=== PATIENT | female | born 1940 | race Caucasian/White ===

== ENCOUNTER 2018-01-16 08:41 | Outpatient (CLI) | payer MEDICARE ==
[2018-01-16 10:44] LABS: Hemoglobin 13.3 g/dL (12.0-16.0); Mean Corpuscular HGB CONC 33.7 g/dL (32.0-36.0); Mean Corpuscular Hemoglobin 32.6 pg (27.0-31.0); Mean Corpuscular Volume 96.9 fl (81.0-99.0); Mean Platelet Volume 7.6 fL (7.4-10.4); Platelet Count 270 thou/uL (130-400); RBC Distribution Width 12.6 % (11.5-14.5); Red Blood Cell (RBC) Count 4.07 mill/uL (4.20-5.40); White Blood Cell (WBC) Count 7.6 thou/uL (4.8-10.8)
[2018-01-16 10:46] LABS: Bilirubin Negative (Negative); Blood, Urine Negative (Negative); Clarity CLEAR (Clear); Glucose, Urine (Dipstick) Negative (Negative); INR-International Normal Ratio 0.9; Leukocyte Negative (Negative); Nitrite Negative (Negative); Protein, Urine (Dipstick) Negative (Neg-Trace); Prothrombin Time 12.3 SEC (12.0-14.7); Specific Gravity, Urine 1.023 (1.002-1.036); Urobilinogen 0.2 mg/dL (0.2-1.0)
[2018-01-16 10:48] LABS: Bacteria/HPF None Seen HPF (None Seen); Hyaline Casts/LPF 0-3 HYALINE CAST LPF (0-3 Hyaline); RBC/HPF 0-3 HPF (0-3); Squamous Epithelial None Seen HPF (0-3)
[2018-01-16 11:07] LABS: Anion Gap 12 mmol/L (10-20); BUN (Urea Nitrogen) 20 mg/dL (9.8-20.1); Calc. Creatinine Clearance 0 mL/min (70-130); Carbon Dioxide 27 mmol/L (23-31); Chloride 106 mmol/L (98-107); Estimated GFR-MDRD 79; Glucose 103 mg/dL (83-110); Potassium 4.6 mmol/L (3.5-5.1); Sodium 140 mmol/L (136-145)
== END 2018-01-16 08:42 | disposition home or self-care (01) ==
LOC: LABBT 08:41
PROVIDERS: ATTEND Orthopaedic Surgery
DX: Z01.818 Encounter for other preprocedural examination (principal); M17.11 Unilateral primary osteoarthritis, right knee
CPT/HCPCS: 80048; 81001; 85027; 85610; 87081; 87086

== ENCOUNTER 2018-01-27 10:54 | Outpatient (CLI) | payer MEDICARE | END 2018-01-27 10:55 | disposition home or self-care (01) | LOC: LABBT 10:54 | PROVIDERS: ATTEND Orthopaedic Surgery | DX: Z01.818 Encounter for other preprocedural examination (principal); M17.11 Unilateral primary osteoarthritis, right knee | CPT/HCPCS: 86850; 86900; 86901 ==

== ENCOUNTER 2018-01-30 08:19 | Day surgery (SDC) | payer MEDICARE ==
[2018-01-16 09:04] VITALS: BMI 32.0
--- NOTE | 2018-01-26 15:45 | HP ---
DATE: 01/30/2018 HISTORY OF PRESENT ILLNESS: The patient is a 77-year-old female with a 1 year history of progressive right knee pain without injury. She has progressive pain with walking. She has had progressive sym ptoms despite rest, restriction of activities, anti-inflammatory medications including Celebrex, stem cell injections and also cortisone injection. The pain is now interfering with day to day activitie s, including walking, getting dressed and sleeping. PAST MEDICAL HISTORY: As noted above. The patient is otherwise in good health. CURRENT MEDICATIONS: Include Celebrex, multivitamins, vitamin D, Coenzyme Q10. ALLERGIES: She has no allergies. FAMILY HISTORY/SOCIAL HISTORY/REVIEW OF SYSTEMS: Otherwise, unremarkable. PHYSICAL EXAMINATION: GENERAL: Reveals a healthy female. HEENT: Unremarkable. NECK: Supple. CHEST: Clear. HEART: Regular rate and rhythm. ABDOMEN: Soft, nontender. PELVIC/RECTAL/BREAST: Exams are deferred. EXTREMITIES: Pertinent findings related to the right knee. There is puffiness but no definite effus ion. There is moderate varus deformity. There is tenderness and crepitus over the medial joint line . Range of motion is 0-120 degrees. There is crepitus with range of motion. There is no instabilit y. Pulses are 2+. There is a right antalgic gait. Neurovascular exam is intact. LABORATORY AND X-RAY FINDINGS: X-rays reveal bone on bone collapse medially with progression from pr evious x-rays and medial and lateral chondrocalcinosis. IMPRESSION: Degenerative arthritis, right knee. PLAN: Right total knee replacement. The nature of the surgery at length of recovery, and potential complications such as infection, loss of motion, incomplete relief, thromboembolic phenomena, neurova scular injury, delayed wound healing, possible revision, possible transfusion have been discussed in detail.
[2018-01-30] MEDS ORDERED: CEFAZOLIN/Water 2 GM/20 ML SYRINGE ONE (09:10)
[2018-01-30] MEDS ORDERED: Ropivacaine 0.5% HCl/PF (150 MG/30 ML VIAL) ONE (09:47)
[2018-01-30] MEDS ORDERED: Bupivacaine/Epinephrine 0.25% 30 ML VIAL ONE ×2 (09:47→11:44)
[2018-01-30] MEDS ORDERED: Morphine 2 MG/ML SYRINGE ONE (10:42)
[2018-01-30] MEDS ORDERED: Midazolam HCl 2 mg/2 ml Vial ONE (10:42)
[2018-01-30] MEDS ORDERED: Ropivacaine 0.2% HCl/PF 20 ML ONE (10:48)
[2018-01-30] MEDS ORDERED: Promethazine HCl 25 MG/ML VIAL IM PRN ×2 (10:54→13:56)
[2018-01-30] MEDS ORDERED: Zolpidem Tartrate 5 MG TAB PO PRN ×2 (10:54→14:40)
[2018-01-30] MEDS ORDERED: Ondansetron HCl/PF 4 MG/2 ML Vial IVP PRN ×3 (10:54→14:40)
[2018-01-30] MEDS ORDERED: traMADol HCl 50 MG TAB PO PRN ×2 (10:54→14:40)
[2018-01-30] MEDS ORDERED: HYDROcodone/Acetaminophen 7.5/325 mg Tablet PO PRN (10:56)
[2018-01-30] MEDS ORDERED: Morphine 2 MG/ML SYRINGE SLOW IVP PRN (10:56)
[2018-01-30] MEDS ORDERED: Lidocaine 1% w/Epinephrine 1:200K 30 ML VIAL ONE (11:44)
[2018-01-30] MEDS ORDERED: Tranexamic Acid 1,000 MG in Sodium Chloride 0.9% 100 ML IVPB SCH ×2 (13:45→14:40)
[2018-01-30] MEDS ORDERED: Fentanyl 250 MCG/5 ML VIAL ONE (13:48)
[2018-01-30] MEDS ORDERED: Promethazine HCl 25 MG/ML VIAL SLOW IVP PRN ×2 (13:56→14:40)
--- NOTE | 2018-01-30 14:07 | OP ---
DATE OF SURGERY: 01/30/2018 SURGEON: Maximo Juarez M.D. BURR PICKER: AGUILAR Mcclain. ANESTHESIA: General plus femoral site nerve blocks. PREOPERATIVE DIAGNOSIS: Degenerative arthritis, right knee. POSTOPERATIVE DIAGNOSIS: Degenerative arthritis, right knee. PROCEDURES PERFORMED: Right total knee replacement with computer-assisted navigation with cemented S tryker Triathlon components (#4 femoral component, #3 universal tibial baseplate with 9 mm CS plastic insert, and A29 all plastic patellar components). NARRATIVE REPORT: After satisfactory anesthesia was induced in supine position, Sequential compressi on device was placed on the operated leg throughout the procedure. Right leg was then prepped and dr aped in routine sterile fashion. The leg was elevated with an Esmarch bandage, and the tourniquet in flated to 300 mmHg. A gently curved medial parapatellar incision was made and carried down to subcut aneous tissues, and bleeding points controlled with Bovie cautery. Medial parapatellar arthrotomy pe rformed. Patella dislocated laterally and portions of the fat pad were excised for exposure. There was marked degenerative arthritis of the knee, especially medially, with large areas of exposed bone. Meniscal remnants and osteophytes were removed. Using the vivio pinless navigation system and e appropriate guides, the distal femoral and proximal tibial articular surfaces were excised with an oscillating saw to accept the trial components. It was felt that #4 femoral component and #3 tibial baseplate with 9 mm CS plastic insert gave appropriate size, fit, stability, and correction of the pr eoperative deformity. The patella surface was excised to accept an all plastic A29 patellar componen t. There was good range of motion, good patellar tracking. The trial components were removed. The wound copiously irrigated with the pulsatile lavage and the bony surfaces thoroughly cleaned and drie d. The permanent components were then cemented in a single stage using 1 package of cement premixed with 1 gram of tobramycin powder. Excess cement was removed. There was then good fit and stability of the components. The knee was again copiously irrigated. The medial retinaculum and quadriceps me chanism was closed with interrupted #2 Vicryl and a running #2 Quill. Subcutaneous tissues were clos ed with running 0 Quill suture and the skin closed with running subcuticular 3-0 Monoderm and SurgiSe al skin adhesive. A sterile bulky compressive dressing was applied and the tourniquet deflated after 62 minutes. The foot promptly pinked up and sequential compression device was placed on the operate d leg. She was awakened and taken to recovery room in stable condition. There were no apparent intr aoperative complications. The estimated blood loss was less than 100 mL.
[2018-01-30] MEDS ORDERED: Fentanyl 100 MCG/2 ML VIAL SLOW IVP PRN ×2 (14:40)
[2018-01-30] MEDS ORDERED: Acetaminophen 325 MG TAB PO PRN (14:40)
[2018-01-30] MEDS ORDERED: Non-Formulary Item 1 EACH (Cholecalciferol (Vitamin D3) [Vitamin D3] 10,000 UNIT) PO SCH (14:40)
[2018-01-30] MEDS ORDERED: HYDROcodone/Acetaminophen 10/325 mg Tablet PO PRN ×2 (14:40)
[2018-01-30] MEDS ORDERED: diphenhydrAMINE 25 MG CAP PO PRN (14:40)
[2018-01-30] MEDS ORDERED: Ondansetron HCl/PF 4 MG/2 ML Vial ONE (14:49)
[2018-01-30] MEDS ORDERED: Propofol 200 MG/20 ML VIAL ONE (14:49)
[2018-01-30] MEDS ORDERED: Dexamethasone 20 MG/5 ML VIAL ONE (14:49)
--- NOTE | 2018-01-30 15:20 | RAD ---
RIGHT KNEE TWO VIEWS: History: Post op total knee. Comparison: None. FINDINGS: Satisfactory appearance of right total knee arthroplasty with patellar resurfacing. Expected post-ope rative gas and edema. IMPRESSION: Satisfactory appearance right total knee arthroplasty without complication. POS: [facility]PC
[2018-01-30] MEDS: Sodium Chloride 0.9% 1,000 ML IV SCH (15:27)
[2018-01-30] MEDS: Morphine 4 MG/ML VIAL SLOW IVP PRN (15:43)
--- NOTE | 2018-01-30 17:01 | PDOC.PN ---
- Subjective Encounter Start Date: 01/30/18 Encounter Start Time: 16:59 Pt seen for management of medical comorbidities, including dyslipidemia. pain R knee 12/24, no other complaints. - Objective MAR Reviewed: Yes Vital Signs & Weight: Weight Weight 175 lb Phys Exam - Physical Examination Obese HEENT: moist MMs Neck: supple Respiratory: clear to auscultation bilateral Cardiovascular: RRR Gastrointestinal: soft s/p R knee surgery Neurological: moves all 4 limbs Psychiatric: normal affect Skin: no rash Dx/Plan (1) Dyslipidemia Code(s): E78.5 - HYPERLIPIDEMIA, UNSPECIFIED Status: Chronic (2) Hypertension Code(s): I10 - ESSENTIAL (PRIMARY) HYPERTENSION Status: Chronic (3) Arthritis Code(s): M19.90 - UNSPECIFIED OSTEOARTHRITIS, UNSPECIFIED SITE Status: Chronic - Plan plan discussed w/ family, PT/OT, out of bed/ambulate * . Continue Zetia. Pt was diagnosed with hypertension in past, later taken off of meds due to hypotension/light-headedness. Takes HCTZ PRN for leg swelling. Will add PRN IV hydralazine for blood pressure spikes. s/p R knee surgery. pain management and DVT prophylaxis per orthopedic surgery. Review of Systems - Review of Systems Cardiovascular: negative: chest pain, palpitations, orthopnea, paroxysmal nocturnal dyspnea, edema, light headedness Gastrointestinal: negative: Nausea, Vomiting, Abdominal Pain, Diarrhea, Constipation, Melena, Hematochezia - Medications/Allergies Allergies/Adverse Reactions: Allergies Allergy/AdvReac Type Severity Reaction Status Date / Time No Known Allergies Allergy Unverified 01/16/18 09:04 Medications: Current Medications Acetaminophen (Tylenol) 650 mg PO Q4H PRN PRN Reason: ROGEL/ T > 101F; Mild Pain (1-3) Hydrocodone Bitart/Acetaminophen ([place] 7.5/325) 1 tab PO Q4H PRN PRN Reason: .MILD PAIN 1-3 Hydrocodone Bitart/Acetaminophen ([place] 7.5/325) 2 tab PO Q4H PRN PRN Reason: .MOD PAIN 4-6 Aspirin (Ecotrin) 81 mg PO BID [facility] Brimonidine Tartrate (Alphagan 0.2% Ophth Soln) 1 drop EA EYE BID TITO Brinzolamide (Azopt 1% Ophth Soln) 1 drop EA EYE BID [facility]ITO Cefazolin Sodium (Ancef) 2 gm SLOW IVP 0400,1200,2000 [facility] Stop: 01/31/18 04:01 Diphenhydramine HCl (Benadryl) 25 mg PO Q6H PRN PRN Reason: Itching Ezetimibe (Zetia) 10 mg PO QAM [facility] Ferrous Gluconate (Fergon) 324 mg PO BID [facility] Bupivacaine HCl 50 ml/ Sodium (Chloride) 100 mls @ 8 mls/hr NERVE BLCK INF [facility] Sodium Chloride (Normal Saline 0.9%) 1,000 mls @ 100 mls/hr IV .Q10H [facility] Last Admin: 01/30/18 15:27 Dose: Not Given Vancomycin HCl 1 gm/ Device 200 mls @ 200 mls/hr IVPB 2200 [facility] Stop: 01/30/18 23:59 Iron/Minerals/Multivitamins (Theragran M) 1 tab PO DAILY [facility] Ketorolac Tromethamine (Toradol) 15 mg IVP Q8HR [facility] Stop: 02/04/18 22:01 Morphine Sulfate (Morphine) 2 mg SLOW IVP Q1H PRN PRN Reason: .BREAKTHROUGH PAIN Last Admin: 01/30/18 15:43 Dose: 2 mg Non-Formulary Medication (Cholecalciferol (Vitamin D3) [Vitamin D3]) 10,000 unit PO ASDIR [facility] Ondansetron HCl (Zofran) 4 mg IVP Q6H PRN PRN Reason: Nausea/Vomiting Ondansetron HCl (Zofran) 4 mg IVP Q6H PRN PRN Reason: Nausea/Vomiting Prasterone (Dhea) [ (Dhea] 5 Mg) 0 each PO DAILY [facility] Promethazine HCl (Phenergan) 12.5 mg IM Q4H PRN PRN Reason: Nausea Promethazine HCl (Phenergan) 12.5 mg SLOW IVP Q4H PRN PRN Reason: Nausea/Vomiting Senna/Docusate Sodium (Senokot S) 2 tab PO BID [facility] Sodium Chloride (Flush - Normal Saline) 10 ml IVF PRN PRN PRN Reason: Saline Flush Tramadol HCl (Ultram) 50 mg PO Q6H PRN PRN Reason: Mild Pain (1-3) Tramadol HCl (Ultram) 100 mg PO Q6H PRN PRN Reason: Moderate Pain 4-6 Zinc Sulfate (Zinc Sulfate) 220 mg PO DAILY [facility] Zolpidem Tartrate (Ambien) 5 mg PO HSPRN PRN PRN Reason: Insomnia
[2018-01-30] MEDS ORDERED: hydrALAZINE 20 MG/ML VIAL SLOW IVP PRN (17:02)
[2018-01-30] MEDS: HYDROcodone/Acetaminophen 7.5/325 mg Tablet PO PRN (20:10)
[2018-01-30] MEDS ORDERED: Non-Formulary Item 1 EACH (Brinzolamide/Brimonidine Tart [Simbrinza 1%/0.2% Ophth Susp] 1 EA EYE SCH (21:00)
[2018-01-30] MEDS: CEFAZOLIN/Water 2 GM/20 ML SYRINGE SLOW IVP SCH (21:07)
[2018-01-30] MEDS: Ketorolac Tromethamine 30 MG/ML VIAL IVP SCH (21:12)
[2018-01-30] MEDS: Aspirin 81 mg Enteric Coated Tablet PO SCH (21:14)
[2018-01-30] MEDS: Senokot S 8.6-50 MG TAB PO SCH (21:15)
[2018-01-30] MEDS ORDERED: Vancomycin HCl 1 GM in Premix Bag 1 BAG IVPB SCH (22:00)
[2018-01-30] MEDS: Brinzolamide 1% Ophth Soln 10 ml Bottle EA EYE SCH (22:27)
[2018-01-30] MEDS: Brimonidine Tartrate 0.2% Ophth Soln 5 ml Bottle EA EYE SCH (22:27)
[2018-01-31] MEDS: HYDROcodone/Acetaminophen 7.5/325 mg Tablet PO PRN ×5 (00:37→20:27)
[2018-01-31] MEDS: Sodium Chloride 0.9% 1,000 ML IV SCH ×3 (03:51→19:58)
[2018-01-31] MEDS: CEFAZOLIN/Water 2 GM/20 ML SYRINGE SLOW IVP SCH (05:03)
[2018-01-31] MEDS: Ketorolac Tromethamine 30 MG/ML VIAL IVP SCH ×3 (05:04→23:02)
[2018-01-31 06:00] LABS: Hemoglobin 11.8 g/dL (12.0-16.0); Mean Corpuscular HGB CONC 32.4 g/dL (32.0-36.0); Mean Corpuscular Hemoglobin 31.8 pg (27.0-31.0); Mean Corpuscular Volume 98.1 fl (81.0-99.0); Mean Platelet Volume 7.2 fL (7.4-10.4); Platelet Count 253 thou/uL (130-400); RBC Distribution Width 12.9 % (11.5-14.5); Red Blood Cell (RBC) Count 3.72 mill/uL (4.20-5.40); White Blood Cell (WBC) Count 15.6 thou/uL (4.8-10.8)
[2018-01-31] MEDS: traMADol HCl 50 MG TAB PO PRN (07:17)
[2018-01-31] MEDS: Ferrous Gluconate 324 MG TAB PO SCH ×2 (08:29→20:19)
[2018-01-31] MEDS: Senokot S 8.6-50 MG TAB PO SCH ×2 (08:30→20:04)
[2018-01-31] MEDS: Zinc Sulfate 220 MG CAP PO SCH (08:30)
[2018-01-31] MEDS: Ezetimibe 10 MG TAB PO SCH (08:30)
[2018-01-31] MEDS: Multivitamin W/ Minerals 1 TAB PO SCH (08:30)
[2018-01-31] MEDS: Aspirin 81 mg Enteric Coated Tablet PO SCH ×2 (08:30→20:19)
[2018-01-31] MEDS: Brinzolamide 1% Ophth Soln 10 ml Bottle EA EYE SCH ×2 (08:31→20:19)
[2018-01-31] MEDS: Brimonidine Tartrate 0.2% Ophth Soln 5 ml Bottle EA EYE SCH ×2 (08:31→20:18)
[2018-01-31] MEDS ORDERED: PRASTERONE 5 MG PO SCH (09:00)
--- NOTE | 2018-01-31 10:15 | PRG ---
DATE OF SERVICE: 01/31/2018 SUBJECTIVE: Mnea is a 77-year-old white female postop day #1 from a right total knee arthroplasty. S he is doing relatively well. She is comfortable. Therapy notes indicate she has ambulated approxima tely 3 feet with moderate assistance. I believe Dr. Juarez has consulted for an inpatient rehabilitat ion bed. PHYSICAL EXAMINATION: GENERAL: She is alert and oriented to person, place, time, and situation. Grossly nonfocal. EXTREM ITIES: Her incision is clean and closed without any erythema or strikethrough noted. She is neurova scularly intact in both lower extremities. ASSESSMENT: A 77-year-old white female postop day #1 right total knee arthroplasty. PLAN: Continue current management, recheck tomorrow. Plan for a transfer to inpatient rehabilitatio at discharge.
--- NOTE | 2018-01-31 18:25 | PDOC.PN ---
- Subjective Encounter Start Date: 01/31/18 Encounter Start Time: 09:00 Pt seen for followup re: dyslipidemia. R knee pain better, no complaints. - Objective MAR Reviewed: Yes Vital Signs & Weight: Vital Signs (12 hours) Temp Pulse Resp BP Pulse Ox 01/31/18 15:19 97.4 F L 84 16 120/70 93 L 01/31/18 11:20 98.5 F 74 16 120/72 94 L 01/31/18 08:00 98.6 F 76 16 94 L 01/31/18 07:35 98.6 F 76 16 125/73 94 L Weight Admit Weight 175 lb Weight 175 lb I&O: 01/30/18 01/31/18 02/01/18 06:59 06:59 06:59 Intake Total 2096 400 Output Total 1225 Balance 871 400 Result Diagrams: 01/31/18 05:41 Phys Exam - Physical Examination Obesity HEENT: moist MMs Neck: supple Respiratory: clear to auscultation bilateral Cardiovascular: RRR Gastrointestinal: soft s/p R knee surgery Psychiatric: A&O x 3 Dx/Plan (1) Dyslipidemia Code(s): E78.5 - HYPERLIPIDEMIA, UNSPECIFIED Status: Chronic Comment: Continue Zetia (2) Hypertension Code(s): I10 - ESSENTIAL (PRIMARY) HYPERTENSION Status: Chronic Comment: Monitor vital signs, titrate antihypertensives as needed (3) Arthritis Code(s): M19.90 - UNSPECIFIED OSTEOARTHRITIS, UNSPECIFIED SITE Status: Chronic Comment: s/p R knee surgery - Plan * . Review of Systems - Review of Systems Respiratory: negative: Cough, Dry, Shortness of Breath, Hemoptysis, SOB with Excertion, Pleuritic Pain, Sputum, Wheezing Cardiovascular: negative: chest pain, palpitations, orthopnea, paroxysmal nocturnal dyspnea, edema, light headedness - Medications/Allergies Allergies/Adverse Reactions: Allergies Allergy/AdvReac Type Severity Reaction Status Date / Time No Known Allergies Allergy Unverified 01/16/18 09:04 Medications: Current Medications Acetaminophen (Tylenol) 650 mg PO Q4H PRN PRN Reason: ROGEL/ T > 101F; Mild Pain (1-3) Hydrocodone Bitart/Acetaminophen ([place] 7.5/325) 1 tab PO Q4H PRN PRN Reason: .MILD PAIN 1-3 Hydrocodone Bitart/Acetaminophen ([place] 7.5/325) 2 tab PO Q4H PRN PRN Reason: .MOD PAIN 4-6 Last Admin: 01/31/18 14:12 Dose: 2 tab Aspirin (Ecotrin) 81 mg PO BID [facility] Last Admin: 01/31/18 08:30 Dose: 81 mg Brimonidine Tartrate ([place] 0.2% Ophth Soln) 1 drop EA EYE BID [facility] Last Admin: 01/31/18 08:31 Dose: Not Given Brinzolamide (Azopt 1% Ophth Soln) 1 drop EA EYE BID [facility] Last Admin: 01/31/18 08:31 Dose: Not Given Diphenhydramine HCl (Benadryl) 25 mg PO Q6H PRN PRN Reason: Itching Ezetimibe (Zetia) 10 mg PO QAM [facility] Last Admin: 01/31/18 08:30 Dose: 10 mg Ferrous Gluconate (Fergon) 324 mg PO BID [facility] Last Admin: 01/31/18 08:29 Dose: 324 mg Hydralazine HCl (Apresoline) 10 mg SLOW IVP Q6H PRN PRN Reason: SBP Greater Than 170 Bupivacaine HCl 50 ml/ Sodium (Chloride) 100 mls @ 8 mls/hr NERVE BLCK INF [facility] Sodium Chloride (Normal Saline 0.9%) 1,000 mls @ 100 mls/hr IV .Q10H [facility] Last Admin: 01/31/18 11:41 Dose: Not Given Iron/Minerals/Multivitamins (Theragran M) 1 tab PO DAILY [facility] Last Admin: 01/31/18 08:30 Dose: 1 tab Ketorolac Tromethamine (Toradol) 15 mg IVP Q8HR [facility] Stop: 02/04/18 22:01 Last Admin: 01/31/18 14:07 Dose: 15 mg Morphine Sulfate (Morphine) 2 mg SLOW IVP Q1H PRN PRN Reason: .BREAKTHROUGH PAIN Last Admin: 01/30/18 15:43 Dose: 2 mg Non-Formulary Medication (Cholecalciferol (Vitamin D3) [Vitamin D3]) 10,000 unit PO ASDIR [facility] Ondansetron HCl (Zofran) 4 mg IVP Q6H PRN PRN Reason: Nausea/Vomiting Ondansetron HCl (Zofran) 4 mg IVP Q6H PRN PRN Reason: Nausea/Vomiting Promethazine HCl (Phenergan) 12.5 mg IM Q4H PRN PRN Reason: Nausea Last Admin: 01/30/18 17:42 Dose: 12.5 mg Promethazine HCl (Phenergan) 12.5 mg SLOW IVP Q4H PRN PRN Reason: Nausea/Vomiting Senna/Docusate Sodium (Senokot S) 2 tab PO BID [facility] Last Admin: 01/31/18 08:30 Dose: 2 tab Sodium Chloride (Flush - Normal Saline) 10 ml IVF PRN PRN PRN Reason: Saline Flush Tramadol HCl (Ultram) 50 mg PO Q6H PRN PRN Reason: Mild Pain (1-3) Tramadol HCl (Ultram) 100 mg PO Q6H PRN PRN Reason: Moderate Pain 4-6 Last Admin: 01/31/18 07:17 Dose: 100 mg Zinc Sulfate (Zinc Sulfate) 220 mg PO DAILY [facility] Last Admin: 01/31/18 08:30 Dose: 220 mg Zolpidem Tartrate (Ambien) 5 mg PO HSPRN PRN PRN Reason: Insomnia
[2018-01-31] MEDS: Bupivacaine 0.5% 50 ML in Sodium Chloride 0.9% 50 ML NERVE BLCK SCH (23:02)
[2018-01-31] MEDS: Morphine 4 MG/ML VIAL SLOW IVP PRN (23:30)
[2018-02-01] MEDS: Sodium Chloride 0.9% 1,000 ML IV SCH (04:08)
[2018-02-01] MEDS: HYDROcodone/Acetaminophen 7.5/325 mg Tablet PO PRN ×2 (06:01→12:41)
[2018-02-01] MEDS: Ketorolac Tromethamine 30 MG/ML VIAL IVP SCH (06:02)
[2018-02-01] MEDS: Bupivacaine 0.5% 50 ML in Sodium Chloride 0.9% 50 ML NERVE BLCK SCH (06:31)
[2018-02-01] MEDS: Ezetimibe 10 MG TAB PO SCH (09:01)
[2018-02-01] MEDS: Zinc Sulfate 220 MG CAP PO SCH (09:01)
[2018-02-01] MEDS: traMADol HCl 50 MG TAB PO PRN (09:02)
[2018-02-01] MEDS: Senokot S 8.6-50 MG TAB PO SCH ×2 (09:02→09:06)
[2018-02-01] MEDS: Aspirin 81 mg Enteric Coated Tablet PO SCH (09:02)
[2018-02-01] MEDS: Multivitamin W/ Minerals 1 TAB PO SCH (09:02)
[2018-02-01] MEDS: Ferrous Gluconate 324 MG TAB PO SCH (09:02)
[2018-02-01] MEDS: Brimonidine Tartrate 0.2% Ophth Soln 5 ml Bottle EA EYE SCH (09:10)
[2018-02-01] MEDS: Brinzolamide 1% Ophth Soln 10 ml Bottle EA EYE SCH (09:10)
[2018-02-01 11:40] VITALS: BP 119/72; TEMP 98
--- NOTE | 2018-02-01 14:58 | PDOC.PN ---
- Subjective Encounter Start Date: 02/01/18 Encounter Start Time: 08:00 Pt seen for followup re: dyslipidemia. No complaints. - Objective MAR Reviewed: Yes Vital Signs & Weight: Vital Signs (12 hours) Temp Pulse Resp BP BP Pulse Ox 02/01/18 11:34 98.0 F 90 16 119/72 91 L 02/01/18 07:45 98.6 F 84 16 95 02/01/18 07:43 98.6 F 84 16 117/65 95 02/01/18 03:58 98.6 F 88 19 129/71 91 L Weight Admit Weight 175 lb Weight 175 lb I&O: 01/31/18 02/01/18 02/02/18 06:59 06:59 06:59 Intake Total 2096 1600 Output Total 1225 1175 Balance 871 425 Result Diagrams: 01/31/18 05:41 Phys Exam - Physical Examination Constitutional: NAD HEENT: moist MMs Neck: supple Respiratory: clear to auscultation bilateral s/p R knee surgery Neurological: moves all 4 limbs Psychiatric: normal affect Dx/Plan (1) Dyslipidemia Code(s): E78.5 - HYPERLIPIDEMIA, UNSPECIFIED Status: Chronic Comment: on Zetia (2) Hypertension Code(s): I10 - ESSENTIAL (PRIMARY) HYPERTENSION Status: Chronic Comment: titrate antihypertensives as needed (3) Arthritis Code(s): M19.90 - UNSPECIFIED OSTEOARTHRITIS, UNSPECIFIED SITE Status: Chronic Comment: s/p R knee surgery - Plan PT/OT, out of bed/ambulate * . Plan for discharge noted, will sign off Review of Systems - Review of Systems Cardiovascular: negative: chest pain, palpitations, orthopnea, paroxysmal nocturnal dyspnea, edema, light headedness - Medications/Allergies Allergies/Adverse Reactions: Allergies Allergy/AdvReac Type Severity Reaction Status Date / Time No Known Allergies Allergy Unverified 01/16/18 09:04
== END 2018-02-01 13:38 ==
LOC: SDC 08:19 → SJJU 14:39 → SDC 02-01 13:38
PROVIDERS: ATTEND Orthopaedic Surgery
PROC: 0SRC0J9 Replacement of Right Knee Joint with Synthetic Substitute, Cemented, Open Approach (ICD-10-PCS; principal; 2018-01-30)
PROC: 8E0YXBZ Computer Assisted Procedure of Lower Extremity (ICD-10-PCS; 2018-01-30)
DX: M17.11 Unilateral primary osteoarthritis, right knee (principal); E78.5 Hyperlipidemia, unspecified; I10 Essential (primary) hypertension; M19.90 Unspecified osteoarthritis, unspecified site; Z79.899 Other long term (current) drug therapy; Z98.890 Other specified postprocedural states
CPT/HCPCS: 20985; 27447; 73560; 85027; 96374; 97110; 97116 ×2; 97139 ×4; 97150; 97530 ×2; 97535; C1713; C1776; G8978; G8979; G8987; G8988; J1100; J1885; J2250; J2270; J2405; J2550; J2704; J2795; J3010; J3370; J3490; J7050

== ENCOUNTER 2018-08-08 12:16 | Outpatient (CLI) | payer MEDICARE | END 2018-08-08 12:17 | disposition home or self-care (01) | LOC: BICMAMMO 12:16 | PROVIDERS: ATTEND Internal Medicine | DX: Z12.31 Encounter for screening mammogram for malignant neoplasm of breast (principal) | CPT/HCPCS: 77063; 77067 ==

== ENCOUNTER 2019-08-30 13:58 | Outpatient (CLI) | payer MEDICARE ==
--- NOTE | 2019-08-30 14:47 | MMO ---
Bilateral MAMMO Bilat Screen [facility]. CLINICAL HISTORY: Patient is 78 years old and is seen for screening. The patient has no family history of breast cancer. The patient has no personal history of cancer. VIEWS: The views performed were: bilateral craniocaudal with tomosynthesis and bilateral mediolateral oblique with tomosynthesis. FILMS COMPARED: The present examination has been compared to prior imaging studies performed at [facility] on 07/14/2017 and 08/08/2018, at [facility] on 07/31/2013, and at [facility] on 12/18/2014. This study has been interpreted with the assistance of computer-aided detection. MAMMOGRAM FINDINGS: There are scattered fibroglandular densities. Finding 1: There are stable benign appearing calcifications seen in both breasts. There are also vascular calcifications. Finding 2: There are stable benign appearing densities seen in both breasts. There are no suspicious masses, suspicious calcifications, or new areas of architectural distortion. IMPRESSION: THERE IS NO MAMMOGRAPHIC EVIDENCE OF MALIGNANCY. A ROUTINE FOLLOW-UP MAMMOGRAM IN 1 YEAR IS RECOMMENDED. THE RESULTS OF THIS EXAM WERE SENT TO THE PATIENT. ACR BI-RADS Category 2 - Benign finding MAMMOGRAPHY NOTE: 1. A negative mammogram report should not delay a biopsy if a dominant of clinically suspicious mass is present. 2. Approximately 10% to 15% of breast cancers are not detected by mammography. 3. Adenosis and dense breasts may obscure an underlying neoplasm. Reported by: LAURI ZHONG MD Electonically Signed: [id number]
== END 2019-08-30 13:59 | disposition home or self-care (01) ==
LOC: BICMAMMO 13:58
PROVIDERS: ATTEND Internal Medicine
DX: Z12.31 Encounter for screening mammogram for malignant neoplasm of breast (principal)
CPT/HCPCS: 77063; 77067

== ENCOUNTER 2020-09-25 15:05 | Outpatient (CLI) | payer MEDICARE ==
--- NOTE | 2020-09-25 16:19 | MMO ---
Bilateral MAMMO Bilat Screen [facility]. CLINICAL HISTORY: Patient is 79 years old and is seen for screening. The patient has no family history of breast cancer. The patient has no personal history of cancer. VIEWS: The views performed were: bilateral craniocaudal with tomosynthesis and bilateral mediolateral oblique with tomosynthesis. FILMS COMPARED: The present examination has been compared to prior imaging studies performed at [facility] on 07/14/2017, 08/08/2018 and 08/30/2019, and at [facility] on 12/18/2014. This study has been interpreted with the assistance of computer-aided detection. MAMMOGRAM FINDINGS: There are scattered fibroglandular densities. Benign calcifications are noted bilaterally. There are no suspicious masses, suspicious calcifications, or new areas of architectural distortion. IMPRESSION: THERE IS NO MAMMOGRAPHIC EVIDENCE OF MALIGNANCY. A ROUTINE FOLLOW-UP MAMMOGRAM IN 1 YEAR IS RECOMMENDED. THE RESULTS OF THIS EXAM WERE SENT TO THE PATIENT. ACR BI-RADS Category 2 - Benign finding MAMMOGRAPHY NOTE: 1. A negative mammogram report should not delay a biopsy if a dominant of clinically suspicious mass is present. 2. Approximately 10% to 15% of breast cancers are not detected by mammography. 3. Adenosis and dense breasts may obscure an underlying neoplasm. Reported by: DANIAL LEIVA MD Electonically Signed: [id number]
== END 2020-09-25 15:06 | disposition home or self-care (01) ==
LOC: BICMAMMO 15:05
PROVIDERS: ATTEND Internal Medicine
DX: Z12.31 Encounter for screening mammogram for malignant neoplasm of breast (principal)
CPT/HCPCS: 77063; 77067

== ENCOUNTER 2021-09-30 14:31 | Outpatient (CLI) | payer MEDICARE | END 2021-09-30 14:32 | disposition home or self-care (01) | LOC: BICMAMMO 14:31 | PROVIDERS: ATTEND Internal Medicine | DX: Z12.31 Encounter for screening mammogram for malignant neoplasm of breast (principal) | CPT/HCPCS: 77063; 77067 ==

== ENCOUNTER 2022-10-20 14:00 | Outpatient (CLI) | payer MEDICARE | END 2022-10-20 14:01 | disposition home or self-care (01) | LOC: BICMAMMO 14:00 | PROVIDERS: ATTEND Internal Medicine | DX: Z12.31 Encounter for screening mammogram for malignant neoplasm of breast (principal); R92.1 Mammographic calcification found on diagnostic imaging of breast; R92.8 Other abnormal and inconclusive findings on diagnostic imaging of breast | CPT/HCPCS: 77063; 77067 ==

== ENCOUNTER 2024-01-18 13:47 | Outpatient (CLI) | payer MEDICARE | END 2024-01-18 13:48 | disposition home or self-care (01) | LOC: BICMAMMO 13:47 | PROVIDERS: ATTEND Internal Medicine | DX: Z12.31 Encounter for screening mammogram for malignant neoplasm of breast (principal) | CPT/HCPCS: 77063; 77067 ==